=== PATIENT | female | born 1975 | race Caucasian/White ===

== ENCOUNTER → 2017-02-01 | Outpatient (CLI) | payer OTHER ==
[2017-02-01 07:27] LABS: Aty Lym Flag Slight; Basophils # (A) 0.1 k/uL (0-0.2); Basophils % (A) 2 %; CH 29.7; CHCM 31.7; Eosinophils # (A) 0.3 k/uL (0-0.7); Eosinophils % (A) 6 %; HCT 43.6 % (34.0-46.0); HDW 1.97; HGB 13.8 gm/dL (11.4-16.0); Luc # (Auto) 0.22; Luc % (Auto) 5; Lymphocytes # (A) 2.1 k/uL (1.0-4.8); Lymphocytes % (A) 50 %; MCH 29.7 pg (25.0-35.0); MCHC 31.6 g/dL (31.0-37.0); Mean Platelet Volume 7.4; Monocytes # (A) 0.2 k/uL (0-1.0); Monocytes % (A) 5 %; Neutrophils # (A) 1.4 k/uL (1.3-7.7); Neutrophils % (A) 32 %; RBC 4.63 m/uL (3.80-5.40); RDW 12.6 % (11.5-15.5); WBC 4.3 k/uL (3.8-10.6); WBC (Perox) 4.41
[2017-02-01 08:06] LABS: ALT 39 U/L (9-52); AST 37 U/L (14-36); Alkaline Phosphatase 84 U/L (38-126); Anion Gap 9 mmol/L; Blood Urea Nitrogen 6 mg/dL (7-17); Calcium 9.3 mg/dL (8.4-10.2); Carbon Dioxide 27 mmol/L (22-30); Chloride 103 mmol/L (98-107); Glucose 81 mg/dL (74-99); Non-African American GFR(MDRD) >60 (>60 ml/min/1.73 sqM); Potassium 5.4 mmol/L (3.5-5.1); Sodium 139 mmol/L (137-145); Total Bilirubin 0.3 mg/dL (0.2-1.3); Total Protein 7.4 g/dL (6.3-8.2)
[2017-02-01 11:22] LABS: Iron Saturation 15.9 (12.00-45.00)
== END | disposition home or self-care (01) ==
LOC: LABWHC1 06:37
PROVIDERS: ATTEND Internal Medicine Geriatric Medicine
DX: E53.8 Deficiency of other specified B group vitamins (principal); E16.9 Disorder of pancreatic internal secretion, unspecified
CPT/HCPCS: 36415; 80053; 82607; 82746; 83540; 83550; 84439; 84443; 85025

== ENCOUNTER → 2024-10-08 | Outpatient (CLI) | payer OTHER ==
--- NOTE | 2024-10-08 08:40 | MM ---
Reason for Exam: Clinical finding. Patient History: Menarche at age 18. Patient has no children. Paternal grandmother had breast cancer. Last menstrual period: 09/19/2024 Risk Values: Skyla 5 year model risk: 0.9%. NCI Lifetime model risk: 9.5%. Tissue Density: The breasts are extremely dense, which lowers the sensitivity of mammography. Findings: Analyzed By CAD. No significant mass, suspicious microcalcification, or other discrete abnormality is seen. Overall Assessment: Incomplete: need additional imaging evaluation, BI-RAD 0 Management: Diagnostic Breast Ultrasound of both breasts. [facility], , 10/08/2024 8:37 AM. Electronically signed and approved by: Libra Salinas M.D. Radiologist
--- NOTE | 2024-10-08 09:27 | USB ---
Reason for Exam: Additional evaluation requested from prior study. Patient History: Menarche at age 18. Patient has no children. Paternal grandmother had breast cancer. Risk Values: Skyla 5 year model risk: 0.9%. NCI Lifetime model risk: 9.5%. Technique: Method: Whole Breast Handheld. Findings: The whole breast of both breasts, the axilla of both breasts and the retroareolar of both breasts were scanned. A complete US of all four quadrants of the breast, axilla, and retro-areolar region were reviewed. No solid or cystic masses are identified. Dense tissues are present throughout. No axillary adenopathy. Mild subareolar duct ectasia on the left is benign. Overall Assessment: Benign, BI-RAD 2 Management: Screening Mammogram of both breasts in 1 year. A clinical breast exam by your physician is recommended on an annual basis and results should be correlated with mammographic findings. This exam should not preclude additional follow-up of suspicious palpable abnormalities. Results were given to the patient verbally at the time of exam. [facility], , 10/08/2024 9:24 AM. Electronically signed and approved by: Libra Salinas M.D. Radiologist
== END | disposition home or self-care (01) ==
LOC: RADMAMWWP 08:17
PROVIDERS: ATTEND Family Medicine
DX: R92.343 Mammographic extreme density, bilateral breasts (principal); N60.19 Diffuse cystic mastopathy of unspecified breast; Z80.3 Family history of malignant neoplasm of breast
CPT/HCPCS: 77062; 77066